=== PATIENT | female | born 1970 | race African-American/Black ===

== ENCOUNTER 2019-05-15 04:39 | Emergency (ER) | payer BC, SELFPAY ==
[2019-05-15] MEDS ORDERED: Metoprolol Tartrate 5 MG/5 ML VIAL ONE (05:00)
[2019-05-15 05:07] LABS: #Basophils 0.2 thou/uL (0.0-0.2); #Eosinphils 0.2 thou/uL (0.0-0.7); #Lymphocytes 3.6 thou/uL (1.20-3.40); #Monocytes 0.6 thou/uL (0.11-0.59); #Neutrophils 5.2 thou/uL (1.40-6.50); %Basophils 1.5 % (0.0-1.0); %Eosinophils 2.1 % (0.0-10.0); %Lymphocytes 36.7 % (21.0-51.0); %Monocytes 5.8 % (0.0-10.0); %Neutrophils 53.8 % (42.0-75.0); Hemoglobin 12.9 g/dL (12.0-16.0); Mean Corpuscular HGB CONC 31.7 g/dL (32.0-36.0); Mean Corpuscular Hemoglobin 25.7 pg (27.0-31.0); Mean Corpuscular Volume 81.1 fL (78.0-98.0); Mean Platelet Volume 7.9 fL (7.4-10.4); Platelet Count 385 thou/uL (130-400); RBC Distribution Width 12.6 % (11.5-14.5); Red Blood Cell (RBC) Count 5.03 mill/uL (4.20-5.40); White Blood Cell (WBC) Count 9.7 thou/uL (4.8-10.8)
[2019-05-15 05:28] LABS: ALT (SGPT) 11 U/L (8-55); AST (SGOT) 14 U/L (5-34); Alkaline Phosphatase 109 U/L (40-110); Anion Gap 13 mmol/L (10-20); BUN (Urea Nitrogen) 13 mg/dL (7.0-18.7); Bilirubin, Total 0.2 mg/dL (0.2-1.2); Calc. Creatinine Clearance 0 mL/min (70-130); Calcium 9.5 mg/dL (7.8-10.44); Carbon Dioxide 28 mmol/L (22-29); Chloride 100 mmol/L (98-107); Estimated GFR-MDRD 90; Globulin 3.2 g/dL (2.4-3.5); Glucose 315 mg/dL (70-105); Potassium 3.8 mmol/L (3.5-5.1); Protein, Total 7.2 g/dL (6.0-8.3); Sodium 137 mmol/L (136-145)
[2019-05-15 05:49] LABS: Bilirubin Negative (Negative); Blood, Urine Negative (Negative); Clarity Clear (Clear); Glucose, Urine (Dipstick) Greater than 1000 mg/dL (Negative); Leukocyte Negative Leu/uL (Negative); Nitrite Negative (Negative); Protein, Urine (Dipstick) Negative (Neg-Trace); Urobilinogen Normal mg/dL (Less than 2)
[2019-05-15 07:21] LABS: Troponin I 0.014 ng/mL (< 0.028)
--- NOTE | 2019-05-15 07:39 | CT ---
PRELIMINARY REPORT/[facility]/EMERGENCY AFTER HOURS PROCEDURE: PROCEDURE INFORMATION: Exam: CT Head Without Contrast Exam date and time: 05/15/2019 5:12 AM Clinical history: 49 years old, female; Pain; Patient HX: F49 w/ HX of HTN and dm presents to the ED with C/O frontal headache that radiates to the back of her head. PT reports headache x 1 week, states it became much worse at 0430 this morning. PT also reports dizziness. PT states it feels like "something is running down her left cheek. PT denies vision changes. TECHNIQUE: Imaging protocol: Computed tomography of the head without contrast. COMPARISON: No relevant prior studies available. FINDINGS: Brain: Normal. No hemorrhage. Unremarkable white matter. No mass effect. Ventricles: Normal. No ventriculomegaly. Bones/joints: Unremarkable. No acute fracture. Sinuses: Visualized sinuses are unremarkable. No fluid levels. Mastoid air cells: Visualized mastoid air cells are well aerated. Soft tissues: Unremarkable. IMPRESSION: No acute intracranial hemorrhage. Thank you for allowing us to participate in the care of your patient. Dictated and Authenticated by: Dmitry Samuel MD 05/15/2019 5:23 AM Central Time ([place] & [place]) FINAL REPORT HEAD CT WITHOUT CONTRAST: DATE: 05/15/2019. COMPARISON: 06/29/2007. HISTORY: Headache, hypertension, diabetes. FINDINGS: I agree with the preliminary report. No intracranial hemorrhage, midline shift, or mass effect. IMPRESSION: No acute findings. Transcribed Date/Time: 05/15/2019 7:50 AM
--- NOTE | 2019-05-15 08:18 | RAD ---
PORTABLE CHEST: DATE: 05/15/2019. PROVIDED CLINICAL HISTORY: Headache, hypertension, and dizziness. FINDINGS: Comparison 11/18/2015. Cardiac silhouette appears enlarged, which may be at least partially on the ba sis of portable technique. There is no focal consolidation, pleural fluid, or pneumothorax apparent. IMPRESSION: No evidence for an acute cardiopulmonary process. POS: OFF
== END 2019-05-15 08:32 | disposition home or self-care (01) ==
LOC: ERS 04:39
DX: I10 Essential (primary) hypertension (principal); R51 Headache; E11.9 Type 2 diabetes mellitus without complications
CPT/HCPCS: 36415; 70450; 71045; 80053; 81003; 83880; 84484; 85025; 93005; 96374

== ENCOUNTER 2020-03-08 09:03 | Emergency (ER) | payer OTHER, SELFPAY ==
[2020-03-08 16:41] LABS: SARS-CoV-2 MS2 Positive; SARS-CoV-2 N Gene Negative; SARS-CoV-2 S Gene Negative; SARS-CoV-2 by NAA Not Detected (NotDetected); SARS-CoV-2 orf1ab Negative
== END 2020-03-08 09:25 | disposition home or self-care (01) ==
LOC: ERS 09:03
DX: R19.7 Diarrhea, unspecified (principal); I10 Essential (primary) hypertension; R00.0 Tachycardia, unspecified; Z20.828 Contact with and (suspected) exposure to other viral communicable diseases; E11.9 Type 2 diabetes mellitus without complications; Z79.84 Long term (current) use of oral hypoglycemic drugs
CPT/HCPCS: 87635; 99283; U0003

== ENCOUNTER 2020-09-22 15:20 | Emergency (ER) | payer BC, SELFPAY ==
[2020-09-22] MEDS ORDERED: diphenhydrAMINE 50 MG/ML VIAL ONE (16:00)
[2020-09-22] MEDS ORDERED: Ketorolac Tromethamine 30 MG/ML VIAL ONE (16:00)
[2020-09-22] MEDS ORDERED: Metoclopramide HCl 10 MG/2 ML VIAL ONE (16:00)
== END 2020-09-22 18:03 | disposition home or self-care (01) ==
LOC: ERS 15:20
DX: R51.9 Headache, unspecified (principal); H53.141 Visual discomfort, right eye; E11.9 Type 2 diabetes mellitus without complications; I10 Essential (primary) hypertension; Z79.84 Long term (current) use of oral hypoglycemic drugs
CPT/HCPCS: 96374; 96375; J1200; J1885; J2765